=== PATIENT | female | born 1945 | race Caucasian/White ===

== ENCOUNTER 2016-12-24 11:05 | Emergency (ER) | payer OTHER ==
[~2016-12-24] VITALS: Ht 160 cm; Wt 69.0 kg
[~2016-12-24 11:05] MED LIST: ASPI81TA28 PO; LOSA1TAB PO; METO25TA3 PO; PRLSR20 PO
[2016-12-24 11:10] VITALS: TEMP 36.8; Ht 160 cm; Wt 69.0 kg
--- NOTE | 2016-12-24 11:57 | DIAGNOSTIC IMAGING REPORT ---
RIGHT TIBIA AND FIBULA 2 VIEWS; RIGHT ANKLE 3 VIEWS CLINICAL HISTORY: Fall with right leg injury. FINDINGS: AP and lateral views of the right tibia and fibula with 3 views of the right ankle are obtained. No prior studies are available for comparison at the time of dictation. The skeletal structures are osteopenic. There is a minimally distracted fracture through the base of the lateral malleolus with overlying soft tissue edema. No additional fracture is seen in the right tibia or fibula. The ankle mortise is intact. Arthritic change is present in the knee. There is no ankle joint effusion. A plantar calcaneal enthesophyte is observed. Calcified phleboliths are present in the mid calf. IMPRESSION: 1. There is a minimally distracted avulsion fracture at the base of the lateral malleolus with overlying soft tissue edema and associated ankle joint effusion. 2. No additional fracture is seen involving the right tibia or fibula. Electronically signed by: Lucho Grant M.D. 12/24/2016 11:56 AM Dictated Date/Time: 12/24/2016 11:53 AM
--- NOTE | 2016-12-24 12:08 | EMERGENCY ROOM VISIT NOTE ---
ED Visit Note First contact with patient: 11:14 This Patient was discussed with the physician Practice Performance Manager, Cameron Cooper PA-C. The pertinent historical and physical exam findings were confirmed. I agree with the studies ordered and with the interpretations of these studies. I agree with the disposition and care plan.
[2016-12-24 12:24] VITALS: BP 147/70; PULSE 85; O2SAT 97
--- NOTE | 2016-12-24 12:27 | EMERGENCY ROOM VISIT NOTE ---
ED Visit Note First contact with patient: 11:14 CHIEF COMPLAINT: Right ankle pain. HISTORY OF PRESENT ILLNESS: Ms. Phillips is a 71-year old white female who ambulates into the ED accompanied by her complaining of right lower leg and lateral ankle pain. She reports approximately 20 hours ago she missed the last step, twisted her ankle and fell. She reports there was no lightheadedness or dizziness before the fall, she did not strike her head or have loss of consciousness at the time of the fall and since the fall she has been having no signs of head injury. Currently complaining at this time is lateral mid lower leg pain and lateral ankle pain. She reports immediately after falling. She had a throbbing discomfort in these areas and then it became pressure with intermittent sharp sensation. She currently rates her discomfort 8/10. Her pain is nonradiating. Her pain worsens with ambulation, plantar flexion and inversion. She has not identified any alleviating factors related to the pain. She reports she's been using ibuprofen with minimal relief of her discomfort. Associated with her pain she reports a mild tingling sensation in her toes. She denies back pain, hip pain, thigh pain, knee pain, leg weakness, previous significant injuries or surgeries to the right leg. REVIEW OF SYSTEMS: As noted above in History of Present Illness. PAST MEDICAL HISTORY: Status post tonsillectomy and unspecified left leg surgery. CURRENT MEDICATIONS: Prilosec, aspirin, Cozaar. ALLERGIES TO MEDICATIONS: Hydrocodone, Darvocet, Percocet and statins. SOCIAL HISTORY: Patient is currently retired; she lives with her ; she denies tobacco and alcohol use. PHYSICAL EXAM: Vital Signs: Date Time Temp Pulse Resp B/P Pulse Ox O2 Delivery O2 Flow Rate FiO2 12/24/16 11:10 36.8 73 18 166/71 99 Room Air General: 71 year old female in moderate distress due to pain, nontoxic-appearing , afebrile and hemodynamically stable. Neurological: Awake, alert, oriented to person place and time. Answering questions appropriately and following commands. Skin: Warm dry and pink. No open soft tissue injuries. Right Lower Extremity: No gross joann deformities. No tenderness in the hip or knee. Tenderness over the lateral aspect of the mid calf with contusion and mild swelling but no bony deformity or crepitus. There is also moderate tenderness over the bony portion of the superior and inferior malleolus with moderate swelling and ecchymosis but no bony deformities. Mild decreased range of motion in inversion and plantarflexion due to pain. Do not appreciate any ligamentous laxity. Distal pulses and sensation is intact. Capillary refill is intact. ED COURSE: Patient is assessed as noted above. Right Ankle X-Rays: Was read by myself and the radiologist showing a minimally displaced avulsion fracture to the base the lateral malleolus with soft tissue edema and radiologist notes an associated ankle joint effusion. Right Lower Leg X-Rays: Were read by myself and the radiologist showing no acute fractures or dislocations but was noted to have the same fracture as noted above. Patient is given ice for pain, swelling and comfort; patient was offered pain medications and refused. Patient is placed in a Ortho-Glass stirrup splint and is instructed on crutch use. Patient is educated about her condition and instructed on her treatment plan; she verbalizes understanding and agreement with the our plan. CLINICAL IMPRESSION: Right fibular malleolus avulsion fracture.. DISPOSITION: Patient is discharged to home in stable condition accompanied by her ; prior to departure she was reassessed and subjectively reported she was feeling better and rated her discomfort 2/10. PLAN: Comfort measures were discussed with the patient. Patient was encouraged to follow-up with [facility] for definitive care and treatment Patient should return ED as needed for worsening/uncontrolled pain, worsening/ uncontrolled swelling, lower leg/ankle weakness or any new/concerning symptoms.
== END 2016-12-24 12:26 | disposition home or self-care (01) ==
LOC: C.EDB 11:06 → C.EDD 12:26
DX: S82.61XA Displaced fracture of lateral malleolus of right fibula, initial encounter for closed fracture (principal); W10.9XXA Fall (on) (from) unspecified stairs and steps, initial encounter; Z79.82 Long term (current) use of aspirin; Z79.899 Other long term (current) drug therapy

== ENCOUNTER → 2017-04-11 | Outpatient (CLI) | payer OTHER ==
[~2017-04-11] MED LIST changes: -METO25TA3 PO
--- NOTE | 2017-04-11 14:08 | MAMMOGRAPHY REPORT ---
BILATERAL DIGITAL SCREENING MAMMOGRAM WITH CAD: 04/11/2017 CLINICAL HISTORY: Routine screening. Patient has no complaints. TECHNIQUE: Current study was also evaluated with a Computer Aided Detection (CAD) system. Bilatera l CC and MLO views were obtained. COMPARISON: Comparison is made to exams dated: 04/05/2016 mammogram, 04/04/2015 mammogram, 04/01/2014 mammogram, 03/31/2013 mammogram - [facility], and 08/01/2010 mammogram - [facility]. BREAST COMPOSITION: There are scattered areas of fibroglandular density in both breasts. FINDINGS: No suspicious masses, calcifications, or areas of architectural distortion are noted in e ither breast. There has been no significant interval change compared to prior exams. Bilateral man gn vascular calcifications are again noted. There are stable postoperative changes in the left uppe r outer quadrant. IMPRESSION: ACR BI-RADS CATEGORY 2: BENIGN There is no mammographic evidence of malignancy. A 1 year screening mammogram is recommended. The p atient will receive written notification of the results. Approximately 10% of breast cancers are not detected with mammography. A negative mammographic repor t should not delay biopsy if a clinically suggestive mass is present. Halle Miller M.D. ah/:04/11/2017 12:26:31 Building Wrecker: Nhung FITCH(Spencer)(Amisha), [facility] letter sent: Normal 1/2 BI-RADS Code: ACR BI-RADS Category 2: Benign
== END | disposition home or self-care (01) ==
LOC: C.MAMM 10:32
PROVIDERS: ATTEND Family Medicine
DX: Z12.31 Encounter for screening mammogram for malignant neoplasm of breast (principal)

== ENCOUNTER 2023-07-16 05:38 | Inpatient (IN) ==
--- NOTE | 2023-07-11 16:25 | PAT Medication Instructions ---
Medication Instructions Date of Service July 11, 2023 Home Medications aspirin 81 mg tablet,delayed release 81 mg PO PM omeprazole 20 mg tablet,delayed release 20 mg PO PM ASK your prescriber and surgeon aspirin 81 mg tablet,delayed release 81 mg PO PM Take evening before surgery omeprazole 20 mg tablet,delayed release 20 mg PO PM Other Notes NOTHING TO EAT OR DRINK AFTER MIDNIGHT. If you have any questions please call us at [phone] or [phone] or [phone] or [phone]
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
[2023-07-16] MEDS ORDERED: ceFAZolin 2000MG 2,000 MG/15 ML SYR IV SCH (06:00)
[2023-07-16] MEDS ORDERED: LACTATED RINGER'S 1,000 ML IV SCH (06:00)
[2023-07-16] MEDS ORDERED: fentaNYL citrate PF 100 MCG/2 ML VIAL ONE ×2 (06:33→08:20)
[2023-07-16] MEDS ORDERED: LIDOCAINE 2% 2 ML VIAL/AMP(20MG/ML) INFIL ONE (06:33)
[2023-07-16] MEDS ORDERED: MIDAZOLAM HCL 1 MG/ML 2ML VIAL ONE (06:33)
[2023-07-16] MEDS ORDERED: GLYCOPYRROLATE 0.2 MG/ML VIAL ONE (06:33)
[2023-07-16] MEDS ORDERED: ONDANSETRON INJ 2 MG/ML 2 ML VIAL ONE (06:33)
[2023-07-16] MEDS ORDERED: ROCURONIUM BROMIDE 10 MG/ML 5 ML VIAL IV ONE (06:33)
[2023-07-16] MEDS ORDERED: PROPOFOL IV EMULSION 10 MG/ML 20 ML VIAL IV ONE (06:33)
[2023-07-16] MEDS ORDERED: SUGAMMADEX SODIUM 200 MG/2 ML VIAL IV ONE (06:55)
[2023-07-16] MEDS ORDERED: ESMOLOL HCL INJ 10 MG/ML 10ML VIAL IV ONE ×2 (06:55→08:38)
[2023-07-16] MEDS ORDERED: GELATIN SPONGE SZ 100 ONE (07:00)
[2023-07-16] MEDS ORDERED: BUPIVACAINE/EPINEPHRINE 0.5% MPF 1:200,000 30 ML VIAL ONE (07:00)
[2023-07-16] MEDS ORDERED: HEPARIN (PORCINE) 1000 UNIT/ML 10 ML (CATH LAB USE ONLY) ONE (07:00)
[2023-07-16] MEDS ORDERED: ceFAZolin 330 MG/ML 1 GM VIAL ONE (07:00)
[2023-07-16] MEDS ORDERED: THROMBIN FOR SOLN 20000 UNIT KIT ONE (07:00)
[2023-07-16] MEDS ORDERED: LIDOCAINE 1% LOCAL 20 ML VIAL ONE (07:00)
[2023-07-16] MEDS ORDERED: ATROPINE SULFATE 0.1 MG/ML 10ML SYR IV PRN (07:13)
[2023-07-16] MEDS ORDERED: ePHEDrine sulfate 50 MG/ML AMP IV PRN (07:13)
[2023-07-16] MEDS ORDERED: ONDANSETRON INJ 2 MG/ML 2 ML VIAL IV PRN ×2 (07:13→11:44)
[2023-07-16] MEDS ORDERED: fentaNYL citrate PF 100 MCG/2 ML VIAL IV PRN (07:13)
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
--- NOTE | 2023-07-16 07:23 | History & Physical Bridge Note ---
Date of Service July 16, 2023 History & Physical Bridge Note Following her CTA she was noted to have high grade stenosis of the left carotid bifurcation however she is not an anatomic candidate for a TCAR procedure. A CEA was discussed with the patient including risks of nerve injury, NH, stroke, and and she is agreeable to proceeding with a left CEA. She will be on Plavix as well as a daily 81mg aspirin following the procedure. We will schedule the left CEA soon. I saw and evaluated the patient. Discussed with the resident and agree with the resident's findings and plan as documented in the resident's note.I have examined the patient, reviewed the History & Physical and in the interval since the performance of the History & Physical I have noted the following changes of clinical significance: no changes noted
[2023-07-16] MEDS ORDERED: DEXAMETHASONE SOD INJ 4 MG/ML VIAL ONE (08:15)
[2023-07-16] MEDS ORDERED: HEPARIN SOD (PORCINE) 1000 UNIT/ML ONE (08:37)
[2023-07-16] MEDS ORDERED: PHENYLEPHRINE 100MCG/ML 5ML SYR ONE (08:38)
[2023-07-16] MEDS ORDERED: ePHEDrine sulfate 50 MG/5 ML SYR ONE (08:38)
[2023-07-16] MEDS ORDERED: PROTAMINE SULFATE 10 MG/ML 5 ML VIAL IV ONE (09:24)
[2023-07-16] MEDS ORDERED: NITROGLYCERIN 5 MG/ML 10 ML VIAL ONE (09:33)
--- NOTE | 2023-07-16 09:35 | Post Operative Brief Note ---
Immediate Post Op Note v1 Date of Surgery July 16, 2023 Pre & Post Diagnosis Operation Date: 07/16/23 07:30 Pre-Op Diagnosis: Left Internal Carotid Artery Stenosis Post-Op Diagnosis: Left Internal Carotid Artery Stenosis I identified the patient and participated in the time-out.: Yes Procedure Operation Date: 07/16/23 07:30 Actual Procedures p Left Carotid Artery Endarterectomy with bovine patch(Left) - Jerrell Bhandari MD Surgeon Jerrell Bhandari MD Developer Programmer MD Amanda LizMinarchick,PAC Estimated Blood Loss 50 Findings Consistent with Post-Op Diagnosis Anesthesia Type General Complications none Disposition Accompanied Patient To Recovery: No Disposition: Recovery Room
--- NOTE | 2023-07-16 09:46 | Operative Report ---
Post Operative Report Pre & Post Diagnosis Operation Date: 07/16/23 07:30 Pre-Op Diagnosis: Left Internal Carotid Artery Stenosis Post-Op Diagnosis: Left Internal Carotid Artery Stenosis I identified the patient and participated in the time-out.: Yes Procedure Operation Date: 07/16/23 07:30 Actual Procedures p Left Carotid Artery Endarterectomy with bovine patch(Left) - Jerrell Bhandari MD Surgeon Thony Tucker MD Drawer In MD Reese Liz,PAC Estimated Blood Loss 50 Findings See Below focal area of calcification from distal common carotid extending into ICA. Wound bed was hemostatic at end of the case. Fluids See anesthesia record Specimens Left carotid plaque Drains none Anesthesia Type General Complications none Disposition Accompanied Patient To Recovery: Yes Disposition: Recovery Room Indications High grade left carotid artery stenosis Description of Procedure The patient was taken to the operating room and placed in supine position. After general anesthesia was accomplished the left-side of the neck was prepped and draped in a sterile manner. A longitudinal neck incision was then made coursing along the medial border of the sternocleidomastoid muscle. The incision was taken down through the platysmal layer. The facial vein was identified, ligated, and divided. Inferior to the facial vein there was another branch of the internal jugular vein which was ligated however it avulsed off of the jugular vein and this venotomy was controlled with a running 5-0 Prolene suture. The common carotid artery was then seen. It was dissected free down to the omohyoid muscle. The dissection was carried upward until the external carotid artery and superior thyroid artery was seen. The superior thyroid artery was slung with a vessel loop. The external carotid was slung with a red rubber vessel loop. Next the dissection was carried up along the internal carotid artery. This was carried upward to beyond the area of narrowing. The hypoglossal nerve was seen and preserved. The patient was heparinized. After adequate heparinization was accomplished, the internal, external, and common carotid arteries were clamped. A longitudinal arteriotomy was started on the common carotid artery and extended upward along the internal carotid artery to a point beyond the area of narrowing. There was calcified plaque of the internal carotid artery origin causing approximately 85-90% narrowing as well as distal common carotid artery. A Doppler shunt was then placed in the internal, followed by the common carotid artery and held in place with Rodrick clamps. There was good back bleeding seen from the internal carotid artery. The endarterectomy was then started in the appropriate plane on the common carotid artery. This was carried upward and the external carotid was everted and endarterectomized. The endarterectomy was then carried up along the internal carotid artery till a nice feathering breakoff point was accomplished beyond the end of the plaque. The endarterectomy was then carried down further on the common carotid artery. At end of the arteriotomy, the plaque was then transected. Under loop magnification, all loose debris and flaps were removed. An area of the distal endarterectomy could have become a flap therefore a tacking 6-[address] There is no distal flap seen at the end of the endarterectomy site. The arteriotomy then closed using an bovine carotid patch with a running 5-0 Prolene suture. This was done in the usual vascular fashion. Prior to completing the closure, the doppler shunt was removed and the internal and common carotid arteries were reclamped. Backbleeding and forward bleeding was allowed to occur. The flow surface was irrigated with heparinized saline. The final few sutures were then placed and securely tied. Clamps were then removed off the external and common carotid arteries. The clamp was then removed the internal carotid artery. Good distal flow was seen. Adequate hemostasis was seen of the patch. The wound was inspected and adequate hemostasis was obtained using gel form and thrombin solution. The wound was irrigated with antibiotic solution. It was then closed with a running 3-0 Vicryl suture for the platysmal layer and a 4-0 subcuticular Vicryl suture for the skin edges. Dermabond was used for dressing. The patient left the operating room in satisfactory condition and tolerated the procedure well. Dr. Bhandari was present and scrubbed for the entire procedure. I attest to the content of the Intraoperative Record and any orders documented therein. Any exceptions are noted below.
[2023-07-16] MEDS ORDERED: LABETALOL HCL IV 5 MG/ML 20ML IV PRN (10:18)
--- NOTE | 2023-07-16 11:02 | Anesthesiology Progress Note ---
Date of Service July 16, 2023 Anesthesia Post Procedure Vital Signs Vital Signs: Temp Pulse Pulse Resp BP BP BP 07/16/23 10:45 97.3 F L 74 15 159/69 H 07/16/23 10:35 75 15 168/85 H 07/16/23 10:25 74 16 167/87 H 07/16/23 10:15 102 H 18 191/79 H 07/16/23 10:09 97.0 F L 112 H 18 147/89 H 07/16/23 10:15 102 H 191/79 H 07/16/23 06:25 97.7 F 64 16 150/58 H Pulse Ox O2 Del Method O2 Flow Rate 07/16/23 10:45 98 Nasal Cannula 2 07/16/23 10:35 98 Nasal Cannula 2 07/16/23 10:25 99 Nasal Cannula 2 07/16/23 10:15 99 Oxymask 5 07/16/23 10:09 98 Oxymask 5 07/16/23 10:15 07/16/23 06:25 97 Room Air Transfer of Care Handoff Completed per policy Notes Mental Status: alert / awake / arousable and participated in evaluation Patient Amnestic to Procedure: Yes Nausea / Vomiting: adequately controlled Pain: adequately controlled Airway Patency, RR, SpO2: stable & adequate BP & HR: stable & adequate Hydration State: stable & adequate Anesthetic Complications: no major complications apparent and Pt Satisfied with anesthetic care
[2023-07-16] MEDS ORDERED: traMADol HCL 50 MG TABLET PO PRN (11:44)
[2023-07-16] MEDS ORDERED: MoRPHine SULFATE 4 MG/ML 1 ML CARP\\VIAL IV PRN (11:44)
[2023-07-16] MEDS: LACTATED RINGER'S 1,000 ML IV SCH ×2 (12:00→23:27)
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
[2023-07-16] MEDS: ceFAZolin 2000MG 2,000 MG/15 ML SYR IV SCH ×2 (16:10→23:27)
[2023-07-16] MEDS ORDERED: ASPIRIN 81 MG ECTAB PO SCH (21:00)
[2023-07-16] MEDS ORDERED: PANTOprazole 40 MG TAB PO SCH (21:00)
[2023-07-16] MEDS ORDERED: FAMOTIDINE 20 MG in SYRINGE 3 ML IV ONE (23:12)
--- NOTE | 2023-07-17 10:41 | Critical Care Progress Note ---
Date of Service July 17, 2023 Assessment & Plan (1) S/P carotid endarterectomy: (2) Cerebrovascular disease: (3) Chronic rhinitis: (4) Cardiomyopathy: Plan Reason Critically Ill: 78-year-old female who is status post LEFT-sided carotid endarterectomy who presents to the ICU for ongoing evaluation and management status post vascular intervention. NEURO - * CAM ICU: NEGATIVE * Neurochecks per protocol status post carotid endarterectomy. CARDIAC/VASCULAR - * Status post LEFT-sided CEA: * Clinically, patient appears very well. Surgical site is clean, dry, intact and without surrounding erythema, edema, or significant ecchymosis. Swallowing has improved. No issues with breathing. * Patient with no review of coronary artery disease or hypertension. * Monitor on telemetry. RESPIRATORY - * No history of pulmonary disease. * Saturating well on room air. GI/NUTRITION - * Pain with swallowing improved. Tolerated diet this morning. Will progress diet. * Prophylaxis: Protonix RENAL/LYTES - * No significant electrolyte derangements. * IVF: Will hold now that patient is tolerating PO. - * No concerns at this time ENDO - * BSGs per unit protocol. ISS --> gtt per unit policy. HEME - * Monitor H&H status post vascular intervention. ID - * No concerns for infectious contribution at this time. LINES/IV ACCESS - * PIVs x2 * LEFT radial arterial line - d/c arterial line today. DVT PROPHYLAXIS - * Will defer to vascular surgery status post CEA. * SCDs Thank you for allowing us to participate in the care of this patient. Please refer to my attending physician's documentation for any further recommendations. Admission and Anticipated Discharge Date Admission Date: July 16, 2023 Supervising Physician Co-Signing Physician Notes I saw and evaluated the patient with Monster Ventura PA-C and I agree with his findings and plan as documented in the note. S/P Left CEA Cardiomyopathy Cerebrovascular Dz Discontinue lines, IV speech therapy with swallowing study Increase activity I have spent more than 50% of this encounter in counseling and/or coordination of care with patient. Subjective Patient seen and evaluated at bedside this morning. She feels much better at this time. Her sore throat has improved and she was able to tolerate her breakfast without issue. She offers no complaints today. Review of Systems Review of Systems: A complete 10 point review of systems was reviewed with the patient with pertinent positives and negatives as per history of present illness. All else were negative. Physical Exam Physical Exam: VITAL SIGNS - Vital signs and nursing notes were reviewed. GENERAL - 78-year-old female appearing her stated age who is in no acute distres s. Communicates well with provider and answers questions appropriately. NECK - Neck with FROM. Supple to palpation. Postoperative LEFT sided endarterectomy incision site clean, dry, and intact. No surrounding erythema or edema noted. LUNGS - Chest wall symmetric without accessory muscle use, intercostals retractions, or central cyanosis. Normal vesicular breath sounds CTA B/L. No wheezes, rales, or rhonchi appreciated. CARDIAC - RRR with S1/S2. No murmur, rubs, or gallops appreciated. NEUROLOGIC - Cranial nerves II through XII grossly intact. Sensory intact to light touch throughout. PSYCH - A&Ox3 and cooperates fully with examiner. Pt is very pleasant and interacts well with examiner. Results & Data Results & Data Vital Signs (Past 12 Hours) Vital Signs Temp Pulse Pulse Resp BP BP Pulse Ox 07/17/23 10:25 36.9 C 76 20 118/73 97 07/17/23 08:00 77 17 96 07/17/23 08:00 124/53 L 07/17/23 07:00 60 12 97 07/17/23 07:00 137/57 L 07/17/23 08:00 50 L 07/17/23 06:30 51 L 11 L 97 07/17/23 06:00 52 L 12 97 07/17/23 06:00 135/54 L 07/17/23 05:30 66 13 91 07/17/23 05:00 59 L 14 97 07/17/23 05:00 154/63 H 07/17/23 04:30 36.5 C 68 17 98 07/17/23 04:00 53 L 14 98 07/17/23 04:00 122/50 L 07/17/23 03:30 47 L 10 L 99 07/17/23 03:00 45 L 15 97 07/17/23 03:00 103/46 L 07/17/23 02:30 47 L 12 99 07/17/23 02:01 120/48 L 07/17/23 02:01 47 L 11 L 98 07/17/23 02:00 49 L 14 97 07/17/23 01:30 49 L 13 98 08/30/23 01:00 86 16 98 07/17/23 00:30 52 L 13 98 07/17/23 00:00 66 14 91 07/17/23 00:00 154/65 H 07/16/23 23:30 64 19 96 07/16/23 23:00 64 15 07/16/23 23:00 146/82 H 07/17/23 00:00 69 O2 Del Method 07/17/23 10:25 Room Air 07/17/23 08:00 07/17/23 08:00 07/17/23 07:00 07/17/23 07:00 07/17/23 08:00 07/17/23 06:30 07/17/23 06:00 07/17/23 06:00 07/17/23 05:30 07/17/23 05:00 07/17/23 05:00 07/17/23 04:30 07/17/23 04:00 07/17/23 04:00 07/17/23 03:30 07/17/23 03:00 07/17/23 03:00 07/17/23 02:30 07/17/23 02:01 07/17/23 02:01 07/17/23 02:00 07/17/23 01:30 07/17/23 01:00 07/17/23 00:30 07/17/23 00:00 07/17/23 00:00 07/16/23 23:30 07/16/23 23:00 07/16/23 23:00 07/17/23 00:00 Coding Level of Care Code 12838 SUB INP/OBS CARE 2/35MIN Diagnoses S/P carotid endarterectomy Z98.890 Cerebrovascular disease I67.9 Chronic rhinitis J31.0 Cardiomyopathy I42.9
--- NOTE | 2023-07-17 10:44 | Surgery Progress Note ---
Date of Service July 17, 2023 Assessment & Plan (1) S/P carotid endarterectomy: Plan: Pt now POD #1 after uncomplicated L CEA. Doing well post op. Also seen by Dr Bhandari today. OK for discharge home today. Will see in office in 2 weeks. Admission and Anticipated Discharge Date Admission Date: July 16, 2023 Subjective 78 yo f POD #1 after uncomplicated L CEA, seen in f/u today. Pt admits L sided neck discomfort and throat pain with swallowing, but no other concerns. Denies difficulty speaking or swallowing, choking on food or drink, dizziness, amaurosis, unilateral extremity weakness numbness or tingling. No other concerns. Review of Systems Review of Systems: All systems reviewed & are unremarkable except as noted in HPI & below Physical Exam Constitutional: WD/WN, vitals as above not in distress ENMT: Ears: no hearing impairment Neck: trachea midline L neck incision C/D/I. +mild local swelling and tenderness. No erythema, ecchymosis or drainage. Respiratory: normal respiratory effort, lungs clear to auscultation Auscultation: + diminished lung sounds Cardiovascular: Rate/Rhythm: regular rate and regular rhythm Vessels: femoral pulses present, posterior tibial pulses present and dorsalis pedis pulses present; + abnormal peripheral pulses Extremities: normal capillary refill; no edema Gastrointestinal (Abdomen): Inspection/Auscultation: abdomen normal to inspection and normal bowel sounds Percussion/Palpation: abdomen soft; abdomen nontender Musculoskeletal: no cyanosis or clubbing, extremities motor strength 5/5 Skin: no rashes, warm and dry Neurologic: moves all extremities and awake; no focal motor deficits and not confused Psychiatric: A+Ox3, euthymic affect Results & Data Vital Signs (Past 12 Hours) Vital Signs Temp Pulse Pulse Resp BP BP Pulse Ox 07/17/23 10:25 36.9 C 76 20 118/73 97 07/17/23 08:00 77 17 96 07/17/23 08:00 124/53 L 07/17/23 07:00 60 12 97 07/17/23 07:00 137/57 L 07/17/23 08:00 50 L 07/17/23 06:30 51 L 11 L 97 07/17/23 06:00 52 L 12 97 07/17/23 06:00 135/54 L 07/17/23 05:30 66 13 91 07/17/23 05:00 59 L 14 97 07/17/23 05:00 154/63 H 07/17/23 04:30 36.5 C 68 17 98 07/17/23 04:00 53 L 14 98 07/17/23 04:00 122/50 L 07/17/23 03:30 47 L 10 L 99 07/17/23 03:00 45 L 15 97 07/17/23 03:00 103/46 L 07/17/23 02:30 47 L 12 99 07/17/23 02:01 120/48 L 07/17/23 02:01 47 L 11 L 98 07/17/23 02:00 49 L 14 97 07/17/23 01:30 49 L 13 98 07/17/23 01:00 86 16 98 07/17/23 00:30 52 L 13 98 07/17/23 00:00 66 14 91 07/17/23 00:00 154/65 H 07/16/23 23:30 64 19 96 07/16/23 23:00 64 15 07/16/23 23:00 146/82 H 07/17/23 00:00 69 O2 Del Method 07/17/23 10:25 Room Air 07/17/23 08:00 07/17/23 08:00 07/17/23 07:00 07/17/23 07:00 07/17/23 08:00 07/17/23 06:30 07/17/23 06:00 07/17/23 06:00 07/17/23 05:30 07/17/23 05:00 07/17/23 05:00 07/17/23 04:30 07/17/23 04:00 07/17/23 04:00 07/17/23 03:30 07/17/23 03:00 07/17/23 03:00 07/17/23 02:30 07/17/23 02:01 07/17/23 02:01 07/17/23 02:00 07/17/23 01:30 07/17/23 01:00 07/17/23 00:30 07/17/23 00:00 07/17/23 00:00 07/16/23 23:30 07/16/23 23:00 07/16/23 23:00 07/17/23 00:00
--- NOTE | 2023-07-17 10:47 | Discharge Summary ---
Date of Service July 17, 2023 Admission HPI Per Admitting Provider Reason for Consultation Left carotid artery stenosis History of Present Illness I had the pleasure of seeing Filomena today for evaluation of her carotids. As you know she is a pleasant 78-year-old female who was found to have a greater than 80% narrowing of her left internal carotid artery on ultrasound last year. She says that she has had reports back in 2010 that shows a 70% or greater narrowing of her left internal carotid artery. There was an MRA done in 2010 at that time showing 70% narrowing of her left internal carotid artery. She is totally asymptomatic from this lesion. She denies any amaurosis fugax, TIAs, or strokes, she denies any slurred speech or facial droop. She also denies any complaints of claudication. She has been on a statin in the past she says about 30 years ago which gave her leg cramps and she has not taken one since. She cannot remember which one it was but says crestor sounds familiar. She does have a cardiomyopathy with ejection fraction of 40%. She denies any chest pain. She is very active. She we were asked, trims her bushes with his yany and does a large amount of gardening. Review of Systems 10 systems reviewed. Positive findings included heartburn constipation and occasional leg incontinence. Rest of the positive findings as per the HPI. Physical Exam Vitals & Measurements Input and Output - Last 24 hours (Last 8 hours) No I/O Data Found: On physical exam he is awake alert and in no apparent distress. Her radials carotids are +2 bilaterally. There is a left carotid bruit. Lungs are clear and her heart had a regular rate and rhythm. Abdominal exam showed no dilatation of the aorta. Femorals and all pedal pulses are +2 bilaterally. Neurologic exam is intact to motor and sensory function. Diagnostic Results Carotid ultrasound done in 2021 which showed a greater than 70% narrowing of the left carotid artery. Assessment/Plan Carotid stenosis, bilateral At this point we recommended a CT angiogram to better define the lesion. She said she has had contrast in the past although was told she had a shellfish allergy when she was a kid. She had no reaction to the contrast that was given. Further treatment determined by results of the CT angiogram. Thank you very much for letting us participate in the care of this patient. Sincerely, Chantel Bhandari MD Problem List/Past Medical History Ongoing Carotid stenosis, bilateral Medications Home aspirin(aspirin 81 mg oral delayed release tablet), 81 mg= 1 tab, PO, Daily omeprazole(omeprazole 20 mg oral delayed release capsule), 20 mg= 1 cap, PO, Daily Allergies Darvocet-N 100 Leg pain Percocet Leg pain statins Leg pain Signature Line Electronic Signature on File Jerrell Bhandari MD Author Signature Dt/Tm: 06/27/2023 10:51 AM Front Man Branden Chadwick [facility] [place] [address] [place] [address] EJS Result Type: .Outpt Ltr Date of Service: June 27, 2023 10:43 EDT Authorization Status: Final Subject: Consult Note Author or Import Date: MD Bhandari Eugene J on June 27, 2023 10:51 EDT Verified By: MD Bhandari Eugene J on June 27, 2023 10:51 EDT Encounter info: [id number], [place] [id number], Clinic, 06/27/2023 - 06/27/2023 Admission Exam Per Admitting Provider On physical exam he is awake alert and in no apparent distress. Her radials carotids are +2 bilaterally. There is a left carotid bruit. Lungs are clear and her heart had a regular rate and rhythm. Abdominal exam showed no dilatation of the aorta. Femorals and all pedal pulses are +2 bilaterally. Neurologic exam is intact to motor and sensory function. Principal Diagnosis 1. s/p L CEA 2. Symptomatic L ICA stenosis Discharge Exam Constitutional WD/WN, vitals as above no acute distress and not in distress Neck trachea midline Respiratory normal respiratory effort, lungs clear to auscultation Auscultation: + diminished lung sounds Cardiovascular Rate/Rhythm: regular rate and regular rhythm Vessels: femoral pulses present, posterior tibial pulses present and dorsalis pedis pulses present; + abnormal peripheral pulses Extremities: normal capillary refill; no edema Gastrointestinal (Abdomen) Inspection/Auscultation: abdomen normal to inspection and normal bowel sounds Percussion/Palpation: abdomen soft; abdomen nontender Musculoskeletal no cyanosis or clubbing, extremities motor strength 5/5 Skin no rashes, warm and dry Neurologic moves all extremities and awake; no focal motor deficits and not confused Psychiatric A+Ox3, euthymic affect Discharge Data Allergies Allergy/AdvReac Type Severity Reaction Status Date / Time hydrocodone Allergy Severe Tachycardia Verified 07/16/23 06:22 oxycodone Allergy Severe Tachycardia Verified 07/16/23 06:22 propoxyphene Allergy Severe Tachycardia Verified 07/16/23 06:22 Uuwudsh-[id number] Reductase AdvReac Severe Fatigued Verified 07/16/23 06:22 Inhibitor [Hgimkzd-Qjk-Phr Reductase Inhibitor] Consultations 07/16/23 11:44 Consult Paunch Trimmer Routine Procedures Performed Operation Date: 07/16/23 07:30 Actual Procedures p Left Carotid Artery Endarterectomy with bovine patch(Left) - Jerrell Bhandari MD Hospital Course (1) S/P carotid endarterectomy: POD #1. Doing well post op. Will d/c today and see in office in 2 weeks. Total Time Total Time Spent Total Time Spent (In Minutes): 0 Discharge Plan Discharge Items Patient Disposition: Home - Self-Care Reason For Visit: Left Internal Carotid Artery Stenosis Discharge Diagnosis: 1. s/p L CEA 2. L ICA stenosis Activity: Per Instructions section Non-emergency contact: Primary Care Provider and Surgeon Call non-emergency contact if: you have any medication questions, your pain is not controlled, your pain is concerning for you, you have a fever, your wound has increased redness and your wound has increased drainage Follow-up/Referrals: Jerrell Bhandari MD [Physician] - (Follow up with Dr Bhandari or Zeynep Kapoor PA-C in 2 weeks. ) Adelaide Walker MD [Primary Care Provider] - (Follow up with your PCP within 2 weeks.) Diet: Heart Healthy Addtl Attending Provider Instructions: SPECIAL CARE INSTRUCTIONS: Medications: * Continue to take Aspirin as directed. Incision Care: * You may shower, but do not rub incision. You may let the warm soapy water run over it. Be sure to dry the incision well after bathing. * Do not shave directly over the incision until it is healed. * DO NOT IMMERSE THE INCISION IN A TUB/POOL/etc. UNTIL HEALED. Restrictions: * Do not drive for at least one week or if you are still taking any narcotic pain medication. * Do not lift anything heavier than a gallon of milk for one week after going home. Possible Complications: * Numbness - It is normal to have some numbness around the incision. Numbness can extend beyond the incision to areas of the neck, ear and face. The numbness is due to bruising of nerves during the surgery and will gradually improve over a period of months. * Hoarseness/Difficulty Speaking and Swallowing - The bruising of nerves in the neck can also cause a hoarse voice, difficulty speaking or swallowing. This may improve over time, HOWEVER, if it continues for more than a few days please contact our office ([phone]). * Excessive Swelling - There will be some swelling immediately after surgery which usually resolves within one week. If you notice that the swelling is getting worse, notify your surgeon ([phone]). * Drainage/Bleeding - If there is any drainage or bleeding, it should be a very small amount (less than a teaspoon per day). If you have excessive bleeding or drainage from the incision, call your surgeon ([phone]) right away. ACTIVATION OF EMERGENCY MEDICAL SYSTEM: Call 911, immediately, if you experience any of the following: Warning Signs and Symptoms of Stroke: * Sudden numbness or weakness of the face, arm or leg, especially on one side of the body * Sudden confusion, trouble speaking or understanding * Sudden trouble seeing in one or both eyes * Sudden trouble walking, dizziness, loss of balance or coordination * Sudden severe headache with no cause Do not delay calling 911 if you experience any warning signs or symptoms of a stroke. Delay in seeking medical attention may affect what treatments can be given to you. Risk Factors for Stroke: You can reduce your chances of stroke by working with your medical provider to adopt a healthy lifestyle. Some specific ways to lower your chance of stroke are: * If you are a smoker, now is the time to stop smoking cigarettes * If you are diabetic, improve the control of your blood sugars * Avoid excessive amounts of alcohol * Control high blood pressure * Lose weight if you are overweight * Be sure to lead an active lifestyle * Eat a healthy diet low in salt, cholesterol and fat You should know about other risk factors for stroke that you are unable to control. These include: * Age 55 years or older * Male gender * Certain racial groups: , or / * Family History of Stroke, Mini stroke or Heart Attack * Sickle Cell Disease You will be receiving a call from the Vascular Surgery Nurse after you are discharged. FOLLOW UP VISIT: It is important for you to keep your follow up appointments with your medical provider. Keep any scheduled doctor appointments. Pending Studies at Discharge: No Stand-Alone Forms: My [facility] [id number], Smoking Cessation Medications and DC Order Prescriptions: New tramadol 50 mg Tablet 50 mg PO Q4H PRN (Reason: pain) Qty: 30 0RF Continued aspirin 81 mg Tablet,Delayed Release (Dr/Ec) 81 mg PO PM omeprazole 20 mg Tablet,Delayed Release (Dr/Ec) 20 mg PO PM Discharge Orders: Discharge Order (Routine); Ordered 07/17/23 Ordered By: Zeynep Kapoor Admission Data Admit Date/Time: 07/16/23 07:23 Attending Provider: Jerrell Bhandari Admit Provider: Jerrell Bhandari Primary Care Provider: Adelaide Walker Other Providers: Lucho Prather ; Chuck Mackenzie ; Monster Ventura ; Nicolas Mckeon ; Eleuterio Gaspar ; Reynaldo Bell [place] ; Shahzad Harper ; Kimmie Avery ; Evie Inman ; Leonel Becerra ; Cameron Degroot Other Interventions: Discharge Summary Assessment (RN) Last Done: 07/17/23 10:42
== END 2023-07-17 11:07 | disposition home or self-care (01) | DRG 38 ==
LOC: ASU 05:38 → 1E 07:23